=== PATIENT | female | born 1950 | race Caucasian/White ===

== ENCOUNTER 2018-08-01 17:25 | Observation (INO) ==
--- NOTE | 2018-08-01 19:40 | Emergency Department Note ---
Disposition Clinical Impression: Nausea Abdominal pain Qualifiers: Abdominal location: right lower quadrant Qualified Code(s): R10.31 - Right lower quadrant pain Acute appendicitis Qualifiers: Acute appendicitis type: unspecified acute appendicitis type Qualified Code(s): K35.80 - Unspecified acute appendicitis Disposition: Admitted As Inpatient Condition: Good Time of Disposition: 21:21 Abdominal Pain HPI - General Chief Complaint: ED Abdominal Pain Stated Complaint: "weak,nausea" Time Seen by Provider: 08/01/18 18:43 Source: patient Mode of arrival: ambulatory Limitations: no limitations Nursing Notes Reviewed: Yes Vital Signs Reviewed: Yes - History of Present Illness HPI Narrative: 67 yo female with past medical history of insulin-dependent diabetes, kidney stones and anxiety presents to the emergency department with the chief complaint of right lower quadrant pain and weakness. Patient states that she has been sic k for the past week with intermittent abdominal pain, one episode of vomiting, and now localized right lower quadrant pain. Patient states this feels like she is passing a kidney stone again. She knew she had a kidney stone on the left that she was passing but the pain on the right is now new. Patient denies burning with urination or blood in her urine. She has not vomited blood and is still having normal bowel movements. She denies fevers at home, coughing congestion. Pain Scale: 6 - Related Data Home Medications Medication Instructions Recorded Confirmed Glimepiride [Amaryl] 4 mg PO BID 11/06/14 11/06/14 HumaLOG 22 unit SQ TID 11/06/14 11/06/14 Insulin Glargine,Hum.rec.anlog 8 unit SQ TID 11/06/14 11/06/14 [Lantus Solostar] Lisinopril [Zestril] 20 mg PO DAILY 11/06/14 11/06/14 Metformin HCl [Fortamet] 2 tab PO HS 11/06/14 11/06/14 Paroxetine [Paxil] 20 mg PO DAILY 11/06/14 11/06/14 Previous Rx's Medication Instructions Recorded HYDROcodone/Acet 5/325 mg [[place] 1 tab PO Q6HR #12 tablet 11/06/14 5-325 mg] Tamsulosin [Flomax] 0.4 mg PO DAILY #7 capsule 11/06/14 OxyCODONE/APAP 5/325 [Percocet 1 each PO ONCE PRN #10 tablet 11/10/14 5/325] Phenazopyridine [Pyridium] 200 mg PO NOW PRN #10 tablet 11/10/14 HYDROcodone/Acet 5/325 mg [[place] 1 tab PO Q6H PRN #15 tab 03/21/16 5-325 mg] Ketorolac [Toradol] 10 mg PO Q4HR PRN #6 tablet 03/21/16 Tamsulosin [Flomax] 0.4 mg PO DAILY #7 capsule 03/21/16 Allergies Allergy/AdvReac Type Severity Reaction Status Date / Time gabapentin AdvReac Mild Confusion Verified 02/27/18 02:36 All systems ED: reviewed and negative except as stated. Review of Systems: As Per HPI Constitutional: Denies: fever, chills, weakness Cardiovascular: Denies: chest pain, palpitations, dyspnea on exertion Respiratory: Denies: cough, dyspnea, wheezes Gastrointestinal: Reports: abdominal pain, nausea, vomiting. Denies: diarrhea, constipation, hematemesis Genitourinary: Denies: dysuria, hematuria Musculoskeletal: Reports: back pain. Denies: neck pain Integumentary: Denies: rash Neurological: Denies: headache, weakness, numbness Psychiatric: Reports: anxiety Endocrine: Denies: fatigue Abdominal Pain PMH - Past Medical History Medical history: Reports: arthritis, diabetes, hypertension, kidney stones, other Female Surgical History: Reports: other Psychiatric history: Reports: no psych history - Social History Smoking status: Never smoker Alcohol use: Reports: none Drug use: Reports: none Physical Exam - General Limitations: no limitations General appearance: alert, in distress (Mild distress) - Head Head exam: atraumatic, normocephalic - Eye Eye exam: Present: normal appearance, PERRL, EOMI - ENT ENT exam: normal exam, normal oropharynx - Neck Neck exam: Present: normal inspection. Absent: tenderness, lymphadenopathy - Chest Chest inspection: Present: normal inspection. Absent: tenderness - Respiratory Respiratory exam: Present: normal lung sounds bilaterally - Cardiovascular Cardiovascular exam: Present: regular rate, normal rhythm - Abdominal Exam Abdominal exam: Present: soft, tenderness. Absent: distention, guarding, rebound, rigidity Abdominal tenderness: Present: RLQ - Extremities Exam Extremities exam: Present: normal inspection. Absent: tenderness, pedal edema - Neurological Exam Neurological exam: Present: alert, oriented X3 - Psychiatric Psychiatric exam: Present: normal affect, normal mood - Skin Skin exam: Present: warm, dry, intact Course Vital Signs Temperature 98.8 F 08/01/18 17:45 Pulse Rate 76 08/01/18 17:45 Respiratory Rate 18 08/01/18 17:45 Blood Pressure 125/64 08/01/18 17:45 O2 Sat by Pulse Oximetry 94 08/01/18 17:45 Temperature 97.9 F 08/01/18 21:14 Pulse Rate 78 08/01/18 21:14 Respiratory Rate 18 08/01/18 21:14 Blood Pressure 132/60 08/01/18 21:14 O2 Sat by Pulse Oximetry 96 08/01/18 21:14 Oxygen Delivery Oxygen Delivery Room Air Abdominal Pain - MDM Narrative Medical decision making narrative: Patient presents with intermittent abdominal pain has not localized to the right lower quadrant that started approximately a week ago with one episode of vomiting, concerning for renal stone versus appendicitis. As the patient has been afebrile and is nontoxic appearing, without a peritoneal abdomen, kidney stone is of higher likelihood. We will obtain basic labs, urinalysis and CT scan without contrast to rule out both conditions. The patient will also be given pain medication and Zofran for her nausea. 2030 - patient declined IV pain and nausea medication as she was feeling better earlier. CT scan demonstrates appendicitis. Patient was informed of this and t he likelihood for admission and she is agreeable with being admitted for IV antibiotics and having surgery see her. She still is pain and nausea free at this time. Acute-care surgical physician Dr. Ray is made aware of this patient and will be examining her in the emergency department. Lab work shows an elevated white count but the rest of the labs are patient's baseline. 2119 - patient has been accepted to the surgical team by Dr. Ray. - Medical Records Medical records reviewed: Yes I reviewed the patient's medical records. - Lab Data Lab results reviewed: Yes I reviewed the patient's lab results. Result diagrams: 08/01/18 20:08 08/01/18 20:08 Lab Results 08/01/18 08/01/18 08/01/18 Range/Units 19:28 20:08 20:08 WBC 11.9 H (4.3-11.1) K/mcL RBC 4.08 (3.82-4.97) M/mcL Hgb 10.6 L (11.5-15.4) g/dL Hct 34.2 L (35.3-44.9) % MCV 83.8 (83.0-100.0) fL MCH 26.0 L (28.0-33.3) pg MCHC 31.0 L (31.6-35.5) g/dL RDW 15.4 H (11.5-14.5) % Plt Count 310 (140-400) K/mcL MPV 9.4 (9.4-12.4) fL Immature Gran % 0.3 (0-4) % Seg Neutrophils % 68.8 % Lymphocytes % 21.7 % Monocytes % 7.9 % Eosinophils % 1.0 % Basophils % 0.3 % Neutrophils # 8.2 (1.6-8.9) K/mcL Lymphocytes # 2.6 (0.6-4.6) K/mcL Monocytes # 0.9 (0.0-1.3) K/mcL Eosinophils # 0.1 (0.0-0.6) K/mcL Basophils # 0.0 (0.0-0.2) K/mcL PT (9.4-12.1) Seconds INR Sodium 138 (136-145) mEq/L Potassium 4.2 (3.5-5.1) mEq/L Chloride 104 (98-107) mEq/L Carbon Dioxide 27 (23-29) mEq/L BUN 27 H (8-23) mg/dL Creatinine 0.87 (0.60-1.20) mg/dL Est GFR ( Amer) > 60 (> 60) Est GFR (Non-Af Amer) > 60 (> 60) BUN/Creatinine Ratio 31 H (6-26) Glucose 182 H (70-105) mg/dL Calculated Osmolality 296 (280-300) Lactic Acid (0.5-2.2) mmol/L Calcium 9.2 (8.6-10.3) mg/dL Total Bilirubin 0.3 (0.3-1.0) mg/dL AST 9 L (13-39) Units/L ALT 11 (7-52) Units/L Alkaline Phosphatase 60 (34-104) Units/L Serum Total Protein 6.9 (6.4-8.9) g/dL Albumin 3.6 (3.5-5.7) g/dL Globulin 3.3 (2.4-3.5) g/dL Albumin/Globulin Ratio 1.1 (1.1-2.2) Lipase 14 (11-82) Units/L Urine Color Yellow (Yellow) Urine Clarity Clear (Clear) Urine pH 5.0 (5.0-8.0) pH Units Ur Specific [place] 1.025 (1.010-1.025) Urine Protein Negative (Neg-Trace) mg/dL Urine Glucose (UA) Normal (Normal) mg/dL Urine Ketones Negative (Negative) mg/dL Urine Blood Negative (Negative) Urine Nitrite Negative (Negative) Urine Bilirubin Negative (Negative) Urine Urobilinogen Normal (Normal) mg/dL Ur Leukocyte Esterase Negative (Negative) Ur Culture Indicated? NO (NO) 08/01/18 08/01/18 Range/Units 20:08 20:08 WBC (4.3-11.1) K/mcL RBC (3.82-4.97) M/mcL Hgb (11.5-15.4) g/dL Hct (35.3-44.9) % MCV (83.0-100.0) fL MCH (28.0-33.3) pg MCHC (31.6-35.5) g/dL RDW (11.5-14.5) % Plt Count (140-400) K/mcL MPV (9.4-12.4) fL Immature Gran % (0-4) % Seg Neutrophils % % Lymphocytes % % Monocytes % % Eosinophils % % Basophils % % Neutrophils # (1.6-8.9) K/mcL Lymphocytes # (0.6-4.6) K/mcL Monocytes # (0.0-1.3) K/mcL Eosinophils # (0.0-0.6) K/mcL Basophils # (0.0-0.2) K/mcL PT 12.7 H (9.4-12.1) Seconds INR 1.1 Sodium (136-145) mEq/L Potassium (3.5-5.1) mEq/L Chloride (98-107) mEq/L Carbon Dioxide (23-29) mEq/L BUN (8-23) mg/dL Creatinine (0.60-1.20) mg/dL Est GFR ( Amer) (> 60) Est GFR (Non-Af Amer) (> 60) BUN/Creatinine Ratio (6-26) Glucose (70-105) mg/dL Calculated Osmolality (280-300) Lactic Acid 1.4 (0.5-2.2) mmol/L Calcium (8.6-10.3) mg/dL Total Bilirubin (0.3-1.0) mg/dL AST (13-39) Units/L ALT (7-52) Units/L Alkaline Phosphatase (34-104) Units/L Serum Total Protein (6.4-8.9) g/dL Albumin (3.5-5.7) g/dL Globulin (2.4-3.5) g/dL Albumin/Globulin Ratio (1.1-2.2) Lipase (11-82) Units/L Urine Color (Yellow) Urine Clarity (Clear) Urine pH (5.0-8.0) pH Units Ur Specific [place] (1.010-1.025) Urine Protein (Neg-Trace) mg/dL Urine Glucose (UA) (Normal) mg/dL Urine Ketones (Negative) mg/dL Urine Blood (Negative) Urine Nitrite (Negative) Urine Bilirubin (Negative) Urine Urobilinogen (Normal) mg/dL Ur Leukocyte Esterase (Negative) Ur Culture Indicated? (NO) - Radiology Data Radiology results reviewed: Yes I reviewed the patient's radiology results. Attestation Statement - Attestation Attestation: Resident Attestation: I examined this patient and my medical decision making was reviewed with the Resident Physician. I agree with the documented findings, disposition and treatment plan as described except to the extent set forth below. We independently had [id number] contact with the patient. Patient presenting for the evaluation of abdominal pain. Right lower quadrant in nature. History of kidney stones. Patient has not had any specific pain like this before. Mild decreased appetite. Patient has significant right lower quadrant tenderness without guarding but does have mild rebound tenderness. Patient will undergo further evaluation for possible kidney stone versus appendicitis.
[2018-08-01] MEDS ORDERED: Ondansetron 4 MG/2 ML VIAL IVP ONE (19:41)
[2018-08-01] MEDS ORDERED: *HR* FentaNYL (PF) 100 MCG/2 ML VIAL IVP ONE (19:41)
[2018-08-01 20:07] LABS: Bilirubin,Urine Negative (Negative); Blood,Urine Negative (Negative); Clarity,Urine Clear (Clear); Color,Urine Yellow (Yellow); Glucose,Urine (UA) Normal (Normal); Ketones,Urine Negative (Negative); Leukocyte Esterase,Urine Negative (Negative); Nitrite,Urine Negative (Negative); Protein,Urine Negative (Neg-Trace); Specific Gravity,Urine 1.025 (1.010-1.025); Urobilinogen,Urine Normal (Normal)
[2018-08-01 20:23] LABS: Basophils % 0.3 %; Eosinophils # 0.1 K/mcL (0.0-0.6); Hematocrit 34.2 % (35.3-44.9); Hemoglobin 10.6 g/dL (11.5-15.4); Immature Granulocytes % 0.3 % (0-4); Lymphocytes # 2.6 K/mcL (0.6-4.6); Lymphocytes % 21.7 %; Mean Corpuscular Volume 83.8 fL (83.0-100.0); Mean Platelet Volume 9.4 fL (9.4-12.4); Monocytes # 0.9 K/mcL (0.0-1.3); Monocytes % 7.9 %; Neutrophils # 8.2 K/mcL (1.6-8.9); Platelet Count 310 K/mcL (140-400); Red Blood Count 4.08 M/mcL (3.82-4.97); Red Cell Distribution Width 15.4 % (11.5-14.5); Segmented Neutrophils % 68.8 %
[2018-08-01] MEDS ORDERED: Piperacillin/Tazobactam 3.375 GM in 0.9 % Sodium Chloride Mini Bag 100 ML IVPB ONE (20:26)
--- NOTE | 2018-08-01 20:38 | Acute Care Surgery H&P ---
Date of Encounter: 08/01/18 Time of Encounter: 20:35 Assessment and Plan (1) Appendicitis Current Visit: Yes Status: Acute 67F with acute appendicitis; NPO IVF IV ABX OR tonight for lap appy The assessment and plan as outlined above was discussed with the patient and/or family members who expressed understanding and agreement. All questions were ans wered. Qualifiers: Appendicitis type: acute appendicitis Acute appendicitis type: with localized peritonitis Appendicitis gangrene presence: without gangrene Appendicitis perforation presence: without perforation Appendicitis abscess presence: without abscess Qualified Code(s): K35.30 - Acute appendicitis with localized peritonitis, without perforation or gangrene History of Present Illness Chief complaint: abdominal pain HPI: Ms. Grant is a 67 year old female PMH significant for OA, DM, HTN who presents with 1-2 days of worsening right sided abominal pain. The pain is non radiating, alleviated by sitting still, worse with movement. Rates an 8/10 with no other systemic symptoms. The patient presented to the ED due to worsening pain. A CT scan was obtained, which was reviewed and interpreted by me, which demonstrated acute appendicitis. No evidence for free air or abscess Past Med Surg Social Fam HX - Past Medical History Medical history: arthritis, diabetes, hypertension, kidney stones, other Psychiatric history: no psych history - Past Surgical History Surgical History: hip replacement Additional surgical history: heart cath in may 2014 - Social History Smoking Status: Never smoker Smokeless Tobacco Status: No Alcohol use: none Drug use: none - Additional Family History Additional family history: non contributory Medications and Allergies Cefdinir [Omnicef] 300 mg PO BID 11/06/14 [History] Glimepiride [Amaryl] 4 mg PO BID 11/06/14 [History] HYDROcodone/Acet 5/325 mg [[place] 5-325 mg] 1 tab PO Q6HR #12 tablet 11/06/14 [Rx] HumaLOG 22 unit SQ TID 11/06/14 [History] Insulin Glargine,Hum.rec.anlog [Lantus Solostar] 8 unit SQ TID 11/06/14 [History] Lisinopril [Zestril] 20 mg PO DAILY 11/06/14 [History] Metformin HCl [Fortamet] 2 tab PO HS 11/06/14 [History] Nitrofurantoin (BID) [Macrobid] 100 mg PO BID 11/06/14 [History] Paroxetine [Paxil] 20 mg PO DAILY 11/06/14 [History] Tamsulosin [Flomax] 0.4 mg PO DAILY #7 capsule 11/06/14 [Rx] OxyCODONE/APAP 5/325 [Percocet 5/325] 1 each PO ONCE PRN #10 tablet 11/10/14 [Rx] Phenazopyridine [Pyridium] 200 mg PO NOW PRN #10 tablet 11/10/14 [Rx] HYDROcodone/Acet 5/325 mg [[place] 5-325 mg] 1 tab PO Q6H PRN #15 tab 03/21/16 [Rx] Ketorolac [Toradol] 10 mg PO Q4HR PRN #6 tablet 03/21/16 [Rx] Tamsulosin [Flomax] 0.4 mg PO DAILY #7 capsule 03/21/16 [Rx] Allergy/AdvReac Type Severity Reaction Status Date / Time gabapentin AdvReac Mild Confusion Verified 02/27/18 02:36 Review of Systems All systems PM: 12 point ROS negative besides HPI findings General Surgery Exam Initial Vital Signs Temp Pulse Resp BP Pulse Ox 98.8 F 76 18 125/64 94 08/01/18 17:45 08/01/18 17:45 08/01/18 17:45 08/01/18 17:45 08/01/18 17:45 - General physical appearance no distress - Eyes normal ocular movement - ENT normocephalic - Neck trachea midline, no lymphadectomy - Respiratory normal expansion, normal respiratory effort - Cardiovascular Cardiovascular exam: Present: RRR - Abdomen Abdomen general surgery: Present: soft, tender Abdominal Tenderness: Present: RLQ (TTP at McBurney's point) - Integumentary Integumentary general surgery: Present: warm and dry - Neurologic Present: CN 2-12 grossly intact - Musculoskeletal Present: normal posture - Psychiatric Psychiatric general surgery: Present: A&Ox3 Results - Labs 08/01/18 20:08 Abnormal lab results WBC 11.9 K/mcL (4.3-11.1) H 08/01/18 20:08 Hgb 10.6 g/dL (11.5-15.4) L 08/01/18 20:08 Hct 34.2 % (35.3-44.9) L 08/01/18 20:08 MCH 26.0 pg (28.0-33.3) L 08/01/18 20:08 MCHC 31.0 g/dL (31.6-35.5) L 08/01/18 20:08 RDW 15.4 % (11.5-14.5) H 08/01/18 20:08 All other labs normal. - Imaging CT scan - abdomen: report reviewed, image reviewed CT scan - pelvis: report reviewed, image reviewed
[2018-08-01] MEDS ORDERED: Ondansetron 4 MG/2 ML VIAL ONE (20:41)
[2018-08-01] MEDS ORDERED: *HR* Succinylcholine 200 MG/10 ML VIAL IVP ONE (20:41)
[2018-08-01] MEDS ORDERED: *HR* FentaNYL (PF) 100 MCG/2 ML VIAL ONE (20:41)
[2018-08-01] MEDS ORDERED: *HR* Propofol 200 MG/20 ML VIAL IVP ONE (20:41)
[2018-08-01] MEDS ORDERED: Dexamethasone 4 MG/ML VIAL ONE (20:41)
[2018-08-01] MEDS ORDERED: Lidocaine -MPF 2% 2 ML VIAL ONE (20:41)
[2018-08-01 20:44] LABS: Alanine Aminotransferase 11 Units/L (7-52); Albumin 3.6 g/dL (3.5-5.7); Albumin/Globulin Ratio 1.1 (1.1-2.2); Alkaline Phosphatase 60 Units/L (34-104); Aspartate Amino Transferase 9 Units/L (13-39); BUN/Creatinine Ratio 31 (6-26); Bilirubin,Total 0.3 mg/dL (0.3-1.0); Blood Urea Nitrogen 27 mg/dL (8-23); Calcium 9.2 mg/dL (8.6-10.3); Carbon Dioxide 27 mEq/L (23-29); Chloride 104 mEq/L (98-107); Globulin 3.3 g/dL (2.4-3.5); Glucose 182 mg/dL (70-105); Lipase 14 Units/L (11-82); Osmolality,Calculated 296 (280-300); Potassium 4.2 mEq/L (3.5-5.1); Sodium 138 mEq/L (136-145); Total Protein 6.9 g/dL (6.4-8.9); eGFR For Non-African Americans > 60 (> 60)
[2018-08-01] MEDS ORDERED: *HR* Cisatracurium 10 MG/5 ML VIAL IV ONE (20:44)
[2018-08-01] MEDS ORDERED: Acetaminophen IV 1,000 MG/100 ML INFUS..BTL ONE (20:44)
[2018-08-01] MEDS ORDERED: 0.9 % Sodium Chloride 1,000 ML IVC SCH ×2 (20:45→23:54)
[2018-08-01 20:47] LABS: INR 1.1; Prothrombin Time 12.7 Seconds (9.4-12.1)
[2018-08-01] MEDS ORDERED: *HR* HYDROmorphone (PF) 1 MG/ML SYRINGE IVP PRN (20:58)
[2018-08-01] MEDS ORDERED: *HR* Promethazine 25 MG/ML VIAL IVP PRN (20:58)
[2018-08-01] MEDS ORDERED: *HR* OxyCODONE Immed Rel 5 MG TABLET PO PRN (20:58)
--- NOTE | 2018-08-01 20:58 | Anesthesia Evaluation PreOp ---
Date of Encounter: 08/01/18 Time of Encounter: 21:29 - Past History Planned Operation: Laparoscopic Appendectomy Cardiac History: HTN, Hyperlipidemia Pulmonary History: Denies Any Significant HX, Snore LINEMAN History: Denies Any Significant HX Other Medical History: Diabetes Type II, Other (depression) Anesthesia History: No Prior Anesthetic Complications, Past Anesthesia Alcohol Use: none Drug use: none Medications and Allergies Cefdinir [Omnicef] 300 mg PO BID 11/06/14 [History] Glimepiride [Amaryl] 4 mg PO BID 11/06/14 [History] HYDROcodone/Acet 5/325 mg [[place] 5-325 mg] 1 tab PO Q6HR #12 tablet 11/06/14 [Rx] HumaLOG 22 unit SQ TID 11/06/14 [History] Insulin Glargine,Hum.rec.anlog [Lantus Solostar] 8 unit SQ TID 11/06/14 [History] Lisinopril [Zestril] 20 mg PO DAILY 11/06/14 [History] Metformin HCl [Fortamet] 2 tab PO HS 11/06/14 [History] Nitrofurantoin (BID) [Macrobid] 100 mg PO BID 11/06/14 [History] Paroxetine [Paxil] 20 mg PO DAILY 11/06/14 [History] Tamsulosin [Flomax] 0.4 mg PO DAILY #7 capsule 11/06/14 [Rx] OxyCODONE/APAP 5/325 [Percocet 5/325] 1 each PO ONCE PRN #10 tablet 11/10/14 [Rx] Phenazopyridine [Pyridium] 200 mg PO NOW PRN #10 tablet 11/10/14 [Rx] HYDROcodone/Acet 5/325 mg [[place] 5-325 mg] 1 tab PO Q6H PRN #15 tab 03/21/16 [Rx] Ketorolac [Toradol] 10 mg PO Q4HR PRN #6 tablet 03/21/16 [Rx] Tamsulosin [Flomax] 0.4 mg PO DAILY #7 capsule 03/21/16 [Rx] Allergy/AdvReac Type Severity Reaction Status Date / Time gabapentin AdvReac Mild Confusion Verified 02/27/18 02:36 - Meds/Allergy Pre-op Review Medications Reviewed: Yes Allergies Reviewed: Yes Beta Blockers on Current Med List: No Anesthesia Results - Labs 08/01/18 20:08 08/01/18 20:08 - Imaging EKG: report reviewed (11/08/2014 SINUS BRADYCARDIA) Anesthesia Exam Vital Signs/O2 Sat, Most Current Temp Pulse Resp BP Pulse Ox 98.8 F 76 18 125/64 94 08/01/18 17:45 08/01/18 17:45 08/01/18 17:45 08/01/18 17:45 08/01/18 17:45 Height: 5'5''/1.65m Weight: 194 lbs/88 kg NPO (# of Hours): 3 Pain Scale: 3 (abdomen) Pain Scale Used: Numeric (1 - 10) - HEENT Pupil (Motor): EOMI Mallampati: III Teeth: Normal Oral Opening: Greater than 3 - LINEMAN LOC: Oriented LINEMAN Motor: Normal RUE, Normal LUE, Normal RLE, Normal LLE, Normal Face LINEMAN Sensory: Normal: RUE, LUE, Face, Deficit: RLE (diabetic neuropathy), LLE (diabetic neuropathy) - Cardiac Rhythm: Regular Murmur: None - Pulmonary Breath Sounds: bilateral Clear Respiratory Effort: Symmetrical Anesthesia Assess/Plan ASA Score: 3 Level of consciousness: Cooperative, Oriented, Tranquil Anesthetic Plan: General Monitoring Plan: Standard Monitors Recovery Plan: PACU
[2018-08-01] MEDS ORDERED: *HR* Midazolam HCl 2 MG/2 ML VIAL ONE (21:35)
--- NOTE | 2018-08-01 23:26 | Operative Note ---
Date of procedure: 08/01/18 Pre-op diagnosis: acute appendicitis Post-op diagnosis: same Procedure: laparoscopic appendectomy Implants: none Complications: none Anesthesia: GETA Local Anesthetics: 0.5% Sensorcaine HCL SubQ (cc) Surgeon: Parth Ray Was there an assistant purchasing manager present: No Estimated blood loss (cc): 5 Specimen: appendix Condition: stable Disposition: PACU Procedure in Detail: The patient was brought into the operating room suite. The patient was placed in the supine position. Mechanical DVT prophylaxis was initiated. The patient underwent smooth induction of general endotracheal anesthesia. The patient was prepped and draped in the usual fashion. Preoperative antibiotics were given. A timeout was held identifying the correct patient, pathology, and procedure. Everyone was in agreement and we began a procedure. Incision to Mesenteric Window I started bycreating a supraumbilical incision and via open Chao technique entered into the abdomen. I then used a Vicryl suture on a UR 6 needle in a [id number] fashion to reapproximate but not close the fascia. I then inserted the 10 trocar followed by the camera to visualize the intraabdominal cavity. I then created a 5 mm incision suprapubically and inserted the 5 mm trocar under direct visualization. Roughly 1 handbreadth lateral to the umbilical incision I created another 5 mm incision and inserted another 5 mm trocar under direct visualization. I then inserted the nontraumatic instruments into the 5 mm ports and began the procedure. I was able to identify the tinea coli coalescing at the base of the cecum to identify the appendix. The appendix was clearly acutely inflammed. Using the nontraumatic grasper I was able to grasp the appendix and then using the [place] dissector was able to create a mesenteric window. Mesenteric Window to Appendectomy I then inserted the nontraumatic grasper into the same mesenteric window to widen it. I then grasped the appendix and switched from the 10 mm camera to the 5 mm camera so that we can insert the stapler through the umbilical port. The teeth of the stapler through the mesenteric window. It should be stated that the stapler was a 45 mm bowel load stapler. It was positioned at the base of the appendix and I was able to confirm under direct visualization that the teeth contained no other structures such as the cecum. I then fired the stapler and resected the appendix from the base of the cecum. I then loaded up a vascular load stapler and then in the similar fashion did fire across the mesentery. Retrieval to Closure I then inserted the Endo Catch bag to retrieve the specimen which was intact upon retrieval. I then switched back to the 10 mm camera and inserted the nontraumatic grasper as well as a suction-turn down worker into the 5 mm ports. And under direct visualization I was able to appreciate the staple line of the mesoappendix as well as the staple line of the base of the cecum. There was no obvious leaking nor bleeding. The pelvis did not have any collection of fluid. I then concluded the procedure, turned off the insufflation, removed the trochars under direct visualization, and then closed the umbilical fascia using the Vicryl suture that was placed at the beginning. I then closed all incisions with interrupted 4-0 Monocryl. And then sealed with Dermabon. It should be stated that I did use 0.5% Marcaine as a local anesthetic. The patient tolerated the procedure well and did go back to PACU in stable condition.
--- NOTE | 2018-08-01 23:38 | Anesthesia Evaluation Post Op ---
Date of Encounter: 08/01/18 Time of Encounter: 23:37 - Vital Signs Vital Signs: Vital Signs/O2 Sat, Most Current Temp Pulse Resp BP Pulse Ox 98.0 F 80 20 106/53 94 08/01/18 23:10 08/01/18 23:30 08/01/18 23:30 08/01/18 23:30 08/01/18 23:30 - Lungs Lungs: Clear Ascult./Percussion - Airway Airway: Non-obstructed - Cardiovascular Regular Rate - Mental Status Mental Status: Asleep with brisk response to light stimulation - Pain Pain Scale: 0 Pain Scale used: Numeric (1 - 10) - Nausea Vomiting Nausea Vomiting: Not Present - Hydration Hydration: Ice chips, Has not voided - Discharge PostOp Status: Transfer Patient to floor
[2018-08-01] MEDS ORDERED: Ondansetron 4 MG/2 ML VIAL IVP PRN (23:54)
[2018-08-02] MEDS ORDERED: *HR* OxyCODONE Immed Rel 5 MG TABLET PO PRN (06:15)
[2018-08-02 06:30] VITALS: BP 94/55
--- NOTE | 2018-08-02 11:00 | Discharge Summary ---
<Marie Knox Leatha - Last Filed: 08/02/18 10:58> - NOTES TO OUTPATIENT PROVIDER Notes to Outpatient Provider: Patient is a 67-year-old female with a past medical history of diabetes hypertension who was admitted for acute appendicitis and underwent appendectomy on daily admission. No intraoperative free air or abscess identified in the surgery. The next day patient is resting comfortably in no acute distress and is tolerating a diet. Okay to discharge to home with follow-up with surgery. Orders not resulted at time of discharge: Pending orders 08/01/18 23:10 Surgical Pathology [PTH] Routine Date of Encounter: 08/02/18 Time of Encounter: 08:00 - Discharge Diagnosis (1) Acute appendicitis Priority: Primary Status: Acute Qualifiers: Acute appendicitis type: unspecified acute appendicitis type Qualified Code(s): K35.80 - Unspecified acute appendicitis General Surgery Exam Initial Vital Signs Temp Pulse Resp BP Pulse Ox 98.8 F 76 18 125/64 94 08/01/18 17:45 08/01/18 17:45 08/01/18 17:45 08/01/18 17:45 08/01/18 17:45 - General physical appearance well developed, well nourished, no distress - Eyes PERRL, normal ocular movement - Neck trachea midline, no venous distension - Respiratory normal expansion, normal respiratory effort, clear to auscultation - Cardiovascular Cardiovascular exam: Present: RRR. Absent: murmurs - Abdomen Abdomen general surgery: Present: bowel sounds present, soft, non tender, surgical scars. Absent: guarding, rigid - Incision Incision: Present: clean and dry, intact, approximated - Integumentary Integumentary general surgery: Present: warm and dry, no abnormal pigmentation - Neurologic Present: CN 2-12 grossly intact, normal coordination - Musculoskeletal Present: normal posture - Psychiatric Psychiatric general surgery: Present: A&Ox3, appropriate - Hospital Course Hospital course: Ms. Grant is a 67 year old female with a past history of OA, diabetes mellitus, hypertension who presented to the emergency department with a 1-2 days of right- sided abdominal pain. Patient underwent CT abdomen and pelvis which was significant for acute uncomplicated appendicitis. Patient underwent same day appendectomy. No free air or abscess identified during the surgery. Patient recovered appropriately after surgery. Tolerated regular diet the next day. Patient okay to discharge to home with follow-up with surgery in 4 weeks. - Time Spent with Patient Total time spent providing and/or coordinating discharge services: - Discharge Medications Prescriptions: Continued Paroxetine [Paxil] 20 mg PO DAILY Lisinopril [Zestril] 20 mg PO DAILY Metformin HCl [Fortamet] 2 tab PO HS Insulin Glargine,Hum.rec.anlog [Lantus Solostar] 8 unit SQ TID HumaLOG 22 unit SQ TID Glimepiride [Amaryl] 4 mg PO BID HYDROcodone/Acet 5/325 mg [[place] 5-325 mg] 1 tab PO Q6HR #12 tablet Tamsulosin [Flomax] 0.4 mg PO DAILY #7 capsule OxyCODONE/APAP 5/325 [Percocet 5/325] 1 each PO ONCE PRN #10 tablet PRN Reason: Pain Phenazopyridine [Pyridium] 200 mg PO NOW PRN #10 tablet PRN Reason: dysuria Ketorolac [Toradol] 10 mg PO Q4HR PRN #6 tablet PRN Reason: Pain HYDROcodone/Acet 5/325 mg [[place] 5-325 mg] 1 tab PO Q6H PRN #15 tab PRN Reason: Pain Tamsulosin [Flomax] 0.4 mg PO DAILY #7 capsule Discontinued Nitrofurantoin (BID) [Macrobid] 100 mg PO BID Cefdinir [Omnicef] 300 mg PO BID Home Medications: Glimepiride [Amaryl] 4 mg PO BID 11/06/14 [History] HYDROcodone/Acet 5/325 mg [[place] 5-325 mg] 1 tab PO Q6HR #12 tablet 11/06/14 [Rx] HumaLOG 22 unit SQ TID 11/06/14 [History] Insulin Glargine,Hum.rec.anlog [Lantus Solostar] 8 unit SQ TID 11/06/14 [History] Lisinopril [Zestril] 20 mg PO DAILY 11/06/14 [History] Metformin HCl [Fortamet] 2 tab PO HS 11/06/14 [History] Paroxetine [Paxil] 20 mg PO DAILY 11/06/14 [History] Tamsulosin [Flomax] 0.4 mg PO DAILY #7 capsule 11/06/14 [Rx] OxyCODONE/APAP 5/325 [Percocet 5/325] 1 each PO ONCE PRN #10 tablet 11/10/14 [Rx] Phenazopyridine [Pyridium] 200 mg PO NOW PRN #10 tablet 11/10/14 [Rx] HYDROcodone/Acet 5/325 mg [[place] 5-325 mg] 1 tab PO Q6H PRN #15 tab 03/21/16 [Rx] Ketorolac [Toradol] 10 mg PO Q4HR PRN #6 tablet 03/21/16 [Rx] Tamsulosin [Flomax] 0.4 mg PO DAILY #7 capsule 03/21/16 [Rx] Allergies/Adverse Reactions: Allergy/AdvReac Type Severity Reaction Status Date / Time gabapentin AdvReac Mild Confusion Verified 02/27/18 02:36 Date of admission: 08/01/18 21:18 Primary care physician: Winter Torres CNP Discharging clinician: Marie Knox Anticipated date of discharge: 08/02/18 Labs on day of discharge: Labs from last 24 hours 08/01/18 08/01/18 08/01/18 20:08 20:08 20:08 WBC RBC Hgb Hct MCV MCH MCHC RDW Plt Count MPV Immature Gran % Seg Neutrophils % Lymphocytes % Monocytes % Eosinophils % Basophils % Neutrophils # Lymphocytes # Monocytes # Eosinophils # Basophils # PT 12.7 H INR 1.1 Sodium 138 Potassium 4.2 Chloride 104 Carbon Dioxide 27 BUN 27 H Creatinine 0.87 Est GFR ( Amer) > 60 Est GFR (Non-Af Amer) > 60 BUN/Creatinine Ratio 31 H Glucose 182 H Calculated Osmolality 296 Lactic Acid 1.4 Calcium 9.2 Total Bilirubin 0.3 AST 9 L ALT 11 Alkaline Phosphatase 60 Serum Total Protein 6.9 Albumin 3.6 Globulin 3.3 Albumin/Globulin Ratio 1.1 Lipase 14 Urine Color Urine Clarity Urine pH Ur Specific [place] Urine Protein Urine Glucose (UA) Urine Ketones Urine Blood Urine Nitrite Urine Bilirubin Urine Urobilinogen Ur Leukocyte Esterase Ur Culture Indicated? 08/01/18 08/01/18 20:08 19:28 WBC 11.9 H RBC 4.08 Hgb 10.6 L Hct 34.2 L MCV 83.8 MCH 26.0 L MCHC 31.0 L RDW 15.4 H Plt Count 310 MPV 9.4 Immature Gran % 0.3 Seg Neutrophils % 68.8 Lymphocytes % 21.7 Monocytes % 7.9 Eosinophils % 1.0 Basophils % 0.3 Neutrophils # 8.2 Lymphocytes # 2.6 Monocytes # 0.9 Eosinophils # 0.1 Basophils # 0.0 PT INR Sodium Potassium Chloride Carbon Dioxide BUN Creatinine Est GFR ( Amer) Est GFR (Non-Af Amer) BUN/Creatinine Ratio Glucose Calculated Osmolality Lactic Acid Calcium Total Bilirubin AST ALT Alkaline Phosphatase Serum Total Protein Albumin Globulin Albumin/Globulin Ratio Lipase Urine Color Yellow Urine Clarity Clear Urine pH 5.0 Ur Specific [place] 1.025 Urine Protein Negative Urine Glucose (UA) Normal Urine Ketones Negative Urine Blood Negative Urine Nitrite Negative Urine Bilirubin Negative Urine Urobilinogen Normal Ur Leukocyte Esterase Negative Ur Culture Indicated? NO - Impressions ITS Impressions Abdomen/Pelvis CT 08/01/18 19:06 IMPRESSION: Acute uncomplicated appendicitis. Fatty infiltration of the liver. D/ / Jackie Moeller Cha, MD / Jackie Moeller Cha, MD Interpreting Provider: Jackie Moeller Cha, MD - Patient Status Disposition: Home, Self-Care Condition: Good - Discharge Instructions Instructions: Laparoscopic Appendectomy (DC) Follow Up With: Winter Torres CNP [Primary Care Provider] - Parth Ray MD [Non-Partnered Physician] - 09/01/18 (4 weeks ) Additional Instructions: Follow-up appointments: If there is not an appointment listed below, please call your physician and schedule a follow-up appointment. If you have congestive heart failure and your symptoms return, make an appointment with your physician. Medication List: Carry an up to date list of medications you are taking at all time. We have given you an updated medication list including any new medications that you have been prescribed. Please provide that list to your primary provider Symptoms: If your condition changes or you experience any of the following symptoms, notify your physician immediately: Unusual or worsening pain, fever, persistent nausea and vomiting, bleeding, increase in swelling (especially in your legs), sudden weight gain, extreme dizziness, chest pain, increased drainage or redness from a wound or incision. Go to the emergency department if you experience a problem with breathing. Weights: If you have a history of swelling or shortness of breath, weigh yourself daily and notify your physician if you have a weight gain of two or more pounds in one day or 5 or more pounds in a week. If you experience any of the warning signs for stroke: Sudden numbness or weakness of the face, arm or leg; especially on one side of the body, sudden confusion, trouble speaking or understanding, sudden trouble seeing in one or both eyes, sudden trouble walking, dizziness, loss of balance or coordination, sudden sever headache with no cause; Call 911 or go to the emergency room. Stroke is a medical emergency. Some risk factors for stroke: Age, cigarette smoking, diabetes, excessive alcohol consumption, family history, high blood pressure, overweight, physical inactivity, prior stroke, heart attack, diagnosis of carotid artery stenosis or other artery disease. If you smoke, STOP: Smoking or tobacco use significantly increases your risk of heart and lung disease. Your chance of disease greatly increases if you continue to smoke. For more information, call the [employer] quit line for smoking cessation 0-536-NWYE-NOW ( ) - Diet and Activity Diet: advance to your usual diet <Parth Ray - Last Filed: 08/02/18 16:57> Orders not resulted at time of discharge: Pending orders 08/01/18 23:10 Surgical Pathology [PTH] Routine Date of Encounter: 08/02/18 - Discharge Diagnosis (1) Appendicitis Status: Acute Qualifiers: Appendicitis type: acute appendicitis Acute appendicitis type: with localized peritonitis Appendicitis gangrene presence: without gangrene Appendicitis perforation presence: without perforation Appendicitis abscess presence: without abscess Qualified Code(s): K35.30 - Acute appendicitis with localized peritonitis, without perforation or gangrene General Surgery Exam Initial Vital Signs Temp Pulse Resp BP Pulse Ox 98.8 F 76 18 125/64 94 08/01/18 17:45 08/01/18 17:45 08/01/18 17:45 08/01/18 17:45 08/01/18 17:45 - Hospital Course Hospital course: Ms. Grant is a 67 year old female - Time Spent with Patient Total time spent providing and/or coordinating discharge services: Date of admission: 08/01/18 21:18 Primary care physician: Winter Torres CNP Labs on day of discharge: Labs from last 24 hours 08/01/18 08/01/18 08/01/18 20:08 20:08 20:08 WBC RBC Hgb Hct MCV MCH MCHC RDW Plt Count MPV Immature Gran % Seg Neutrophils % Lymphocytes % Monocytes % Eosinophils % Basophils % Neutrophils # Lymphocytes # Monocytes # Eosinophils # Basophils # PT 12.7 H INR 1.1 Sodium 138 Potassium 4.2 Chloride 104 Carbon Dioxide 27 BUN 27 H Creatinine 0.87 Est GFR ( Amer) > 60 Est GFR (Non-Af Amer) > 60 BUN/Creatinine Ratio 31 H Glucose 182 H Calculated Osmolality 296 Lactic Acid 1.4 Calcium 9.2 Total Bilirubin 0.3 AST 9 L ALT 11 Alkaline Phosphatase 60 Serum Total Protein 6.9 Albumin 3.6 Globulin 3.3 Albumin/Globulin Ratio 1.1 Lipase 14 Urine Color Urine Clarity Urine pH Ur Specific [place] Urine Protein Urine Glucose (UA) Urine Ketones Urine Blood Urine Nitrite Urine Bilirubin Urine Urobilinogen Ur Leukocyte Esterase Ur Culture Indicated? 08/01/18 08/01/18 20:08 19:28 WBC 11.9 H RBC 4.08 Hgb 10.6 L Hct 34.2 L MCV 83.8 MCH 26.0 L MCHC 31.0 L RDW 15.4 H Plt Count 310 MPV 9.4 Immature Gran % 0.3 Seg Neutrophils % 68.8 Lymphocytes % 21.7 Monocytes % 7.9 Eosinophils % 1.0 Basophils % 0.3 Neutrophils # 8.2 Lymphocytes # 2.6 Monocytes # 0.9 Eosinophils # 0.1 Basophils # 0.0 PT INR Sodium Potassium Chloride Carbon Dioxide BUN Creatinine Est GFR ( Amer) Est GFR (Non-Af Amer) BUN/Creatinine Ratio Glucose Calculated Osmolality Lactic Acid Calcium Total Bilirubin AST ALT Alkaline Phosphatase Serum Total Protein Albumin Globulin Albumin/Globulin Ratio Lipase Urine Color Yellow Urine Clarity Clear Urine pH 5.0 Ur Specific [place] 1.025 Urine Protein Negative Urine Glucose (UA) Normal Urine Ketones Negative Urine Blood Negative Urine Nitrite Negative Urine Bilirubin Negative Urine Urobilinogen Normal Ur Leukocyte Esterase Negative Ur Culture Indicated? NO - Impressions ITS Impressions Abdomen/Pelvis CT 08/01/18 19:06 IMPRESSION: Acute uncomplicated appendicitis. Fatty infiltration of the liver. D/ / Jackie Moeller Cha, MD / Jackie Moeller Cha, MD Interpreting Provider: Jackie Moeller Cha, MD - Attending Attestation patient seen and examined. i have reviewed all labs, imaging and notes pertinent to this case. I have discussed the case in detail with the resident. i agree with the above assessment and plan.
[2018-08-02] MEDS ORDERED: Insulin LISPRO 300 UNITS/3 ML VIAL SQ SCH (11:30)
== END 2018-08-02 11:38 | disposition home or self-care (01) ==
LOC: 3BNU 17:25 → EMEROOARM 17:25 → 3BNU 21:25
PROVIDERS: ADMIT Surgery; ATTEND Surgery